=== PATIENT | male | born 1980 | race Caucasian/White ===

== ENCOUNTER 2021-12-29 14:13 | Emergency (ER) | payer OTHER ==
[~2021-12-29] VITALS: Ht 188 cm; Wt 90.7 kg
[2021-12-29] MEDS ORDERED: KETOROLAC 30MG VIAL (30MG/ML) IM ONE (15:00)
[2021-12-29] MEDS ORDERED: IBUP-2070 PO (15:53)
[2021-12-29 16:06] VITALS: BP 112/69
== END 2021-12-29 16:10 | disposition home or self-care (01) ==
LOC: EDH 14:13
DX: S93.402A Sprain of unspecified ligament of left ankle, initial encounter (principal); Z88.6 Allergy status to analgesic agent; X50.1XXA Overexertion from prolonged static or awkward postures, initial encounter; Y93.39 Activity, other involving climbing, rappelling and jumping off; Y92.89 Other specified places as the place of occurrence of the external cause; Y99.8 Other external cause status
CPT/HCPCS: 73610; 73630; 96372; 99284; J1885